=== PATIENT | male | born 1965 | race Caucasian/White ===

== ENCOUNTER 2016-09-29 04:56 | Emergency (ER) | payer BC ==
[~2016-09-29] VITALS: Ht 167.6 cm; Wt 77.6 kg
--- NOTE | 2016-09-29 05:01 | NUR ---
PATIENT WALKED INTO ER C/O N/V AND DIARRHEA X2 DAYS. PATIENT ALSO STATES THAT HE WOKE UP 1HR AGO WITH NON RADIATING CP,FLUTTERING AND SOB AND HAD NEAR SYNCOPE EPISODE. PATIENT UPON ARRIVAL DENIES CP, PT IS ALERT, ORIENTED X 4, NO RESP DISTRESS NOTED OR REPORTED UPON ASSESSMENT...MD AT BEDSIDE...
[2016-09-29] MEDS: IV NORMAL SALINE 1000 ML BAG IV ONE (05:20)
[2016-09-29 05:42] LABS: BASOPHILS # (AUTO) 0.1 K/uL (0.0-8.0); BASOPHILS % (AUTO) 0.9 % (0.0-2.0); EOSINOPHILS # (AUTO) 0.2 K/uL (0.0-0.7); HEMATOCRIT 50.6 % (40-50); HEMOGLOBIN 16.9 G/DL (14.0-18.0); LYMPHOCYTES # (AUTO) 2.9 K/UL (0.8-4.8); LYMPHOCYTES % (AUTO) 29.4 % (20.5-51.5); MEAN CORPUSCULAR HEMOGLOBIN 29.1 UUG (27.0-31.0); MEAN CORPUSCULAR HGB CONC 33 g/dL (32.0-37.0); MEAN CORPUSCULAR VOLUME 87.2 FL (82.0-92.0); MONOCYTES # (AUTO) 0.7 K/UL (0.1-1.30); NEUTROPHILS % (AUTO) 60.7 % (38.5-71.5); PLATELET COUNT (AUTO) 257 K/UL (150-450); WHITE BLOOD COUNT (AUTO) 9.9 K/UL (4.0-11.2)
[2016-09-29 05:54] LABS: CREATININE 1.3 mg/dL (0.6-1.3); POTASSIUM 3.2 mmol/L (3.5-5.1)
[2016-09-29 06:00] LABS: BILIRUBIN,DIRECT 0.1 mg/dL (0.0-0.2); BILIRUBIN,TOTAL 0.6 mg/dL (0.2-1.0); TOTAL PROTEIN, SERUM 8.4 g/dL (6.4-8.2)
--- NOTE | 2016-09-29 07:55 | NUR ---
PT WAS D/C TO HOME. D/C INSTRUCTIONS GIVEN TO THE PT. GAIT IS STABLE. NO S/S OF DISTRESS. PT DENIES PAIN. NO N/V.
[2016-09-29 08:00] VITALS: BP 128/71
== END 2016-09-29 08:01 | disposition home or self-care (01) ==
LOC: ER 05:01
DX: E86.0 Dehydration (principal); R11.2 Nausea with vomiting, unspecified; R19.7 Diarrhea, unspecified; Z88.0 Allergy status to penicillin
CPT/HCPCS: 36415; 70030-TC; 71010; 83605; 83735; 85025; 85730; 87040; 93005; A4663; J7030